=== PATIENT | female | born 1955 | race African-American/Black ===

== ENCOUNTER 2018-10-27 15:18 | Emergency (ER) | payer OTHER ==
[~2018-10-27] VITALS: Ht 154.9 cm; Wt 67.0 kg
[2018-10-27] MEDS ORDERED: IBUPROFEN 800MG TABLET PO ONE (17:00)
[2018-10-27 17:20] VITALS: BP 139/76
== END 2018-10-27 17:34 | disposition home or self-care (01) ==
LOC: ER 15:18
DX: S80.01XA Contusion of right knee, initial encounter (principal); S90.01XA Contusion of right ankle, initial encounter; M62.838 Other muscle spasm; V49.09XA Driver injured in collision with other motor vehicles in nontraffic accident, initial encounter; Y93.89 Activity, other specified; Y92.89 Other specified places as the place of occurrence of the external cause; Y99.8 Other external cause status
CPT/HCPCS: 99283